=== PATIENT | female | born 1930 ===

== ENCOUNTER 2017-06-15 15:28 | Inpatient (IN) | payer MEDICARE, MEDICAID ==
[2017-06-15 16:15] LABS: BASO # 0.03 K/mm3 (0.0-2.0); BASO % 0.3 % (0.0-3.0); EOS # 0.1 (0.0-0.7); EOS % 1.3 % (1.5-5.0); GRAN # 6.16 (1.4-6.5); GRAN % 59.2 % (50.0-68.0); HEMATOCRIT 42.2 % (36.0-48.0); LYMPH # 3.5 (1.2-3.4); LYMPH % 33.6 % (22.0-35.0); MEAN CELL VOLUME 92.1 fl (80.0-105.0); MEAN CORPUSCULAR HEMOGLOBIN 30.3 pg (25.0-35.0); MEAN CORPUSCULAR HGB CONC 32.9 g/dl (31.0-37.0); MEAN PLATELET VOLUME 9.7 fl (7.0-11.0); MONO # 0.6 (0.1-0.6); MONO % 5.6 % (1.0-6.0); RED CELL DISTRIBUTION WIDTH 13.5 % (11.5-14.5); WHITE BLOOD COUNT 10.4 10^3/ul (4.5-11.0)
--- NOTE | 2017-06-15 16:16 | ED PDOC ---
Arrival/HPI - General Chief Complaint: High Blood Pressure Time Seen by Provider: 06/15/17 15:41 - History of Present Illness Narrative History of Present Illness (Text): 06/15/17 16:13 Patient is an 87 y/o F with hx of vertigo, presenting with complaint of room spinning. Patient reports that she had a checkup with her PMD Dr. Nielsen today. She reports that on the way home she became acutely dizzy. She had one episode of vomiting and is now complaining of epigastric pain and some diarrhea. Reports that she cannot ambulate or open eyes due to severe vertigo. Denies chest pain or shortness of breath. Reports that last week she did not take her medication for 3 days because she forgot but now reports compliance. Past Medical History - Infectious Disease Hx of Infectious Diseases: None - Tetanus Immunization Tetanus Immunization: Up to Date - Cardiac Hx Hypertension: Yes - Pulmonary Hx Asthma: Yes - HEENT Hx Cataracts: Yes - Musculoskeletal/Rheumatological Hx Falls: No - Psychiatric Hx Depression: No Hx Emotional Abuse: No Hx Physical Abuse: No Hx Substance Use: No - Past Surgical History Past Surgical History: No Previous - Surgical History Other/Comment: bilateral lens implanted to both eyes - Anesthesia Hx Anesthesia: No Hx Anesthesia Reactions: No Hx Malignant Hyperthermia: No - Suicidal Assessment Feels Threatened In Home Enviroment: No Family/Social History Family/Social History: No Known Family HX Smoking Status: Never Smoked Hx Alcohol Use: No Hx Substance Use: No Hx Substance Use Treatment: No Allergies/Home Meds Allergies/Adverse Reactions: Allergies No Known Allergies Allergy (Verified 08/21/15 22:20) Home Medications: Home Meds Medication Instructions Recorded Confirmed Unobtainable 06/15/17 06/15/17 Review of Systems - Review of Systems Constitutional: absent: Fatigue, Weight Change, Fevers Eyes: absent: Vision Changes, Photophobia ENT: absent: Hearing Changes, Tinnitus, TMJ Pain, Voice Changes, Sore Throat, Rhinorrhea Respiratory: absent: SOB, Cough, Sputum, Wheezing Cardiovascular: absent: Chest Pain Gastrointestinal: Abdominal Pain, Diarrhea, Nausea, Vomiting. absent: Constipation Genitourinary Female: absent: Dysuria, Frequency, Hematuria Musculoskeletal: absent: Arthralgias Skin: absent: Rash Neurological: Dizziness. absent: Headache, Focal Weakness, Speech Changes, Facial Droop Physical Exam Vital Signs Reviewed: Yes Vital Signs Temp Pulse Resp BP Pulse Ox 06/15/17 16:28 71 20 152/75 H 97 06/15/17 16:20 71 18 152/76 H 95 06/15/17 15:39 97.8 F 71 18 186/78 H 96 06/15/17 15:33 97.8 F 75 18 186/78 H 97 Temperature: Afebrile Blood Pressure: Normal Pulse: Regular Respiratory Rate: Normal Appearance: Positive for: Well-Appearing, Non-Toxic, Comfortable Pain Distress: None Mental Status: Positive for: Alert and Oriented X 3 - Systems Exam Head: Present: Atraumatic, Normocephalic Pupils: Present: PERRL, Other (horizontal nystagmus) Extroacular Muscles: Present: EOMI Conjunctiva: Present: Normal Ears: Present: NORMAL TM Mouth: Present: Moist Mucous Membranes Neck: Present: Normal Range of Motion. No: Meningeal Signs, MIDLINE TENDERNESS Respiratory/Chest: Present: Clear to Auscultation, Good Air Exchange. No: Respiratory Distress, Accessory Muscle Use Cardiovascular: Present: Regular Rate and Rhythm, Normal S1, S2. No: Murmurs Abdomen: No: Tenderness, Distention, Rebound, Guarding Upper Extremity: Present: Normal Inspection Lower Extremity: Present: Normal Inspection Neurological: Present: GCS=15, CN II-XII Intact, Speech Normal. No: Gait Normal (unable to assess due to symptoms) Psychiatric: Present: Alert, Oriented x 3 Medical Decision Making ED Course and Treatment: 06/15/17 16:16 EKG shows NSR at 71bpm with normal intervals and no st changes 06/15/17 17:00 Chest X-ray: Creator : Gustabo Romeo MD COMPARISON: 08/12/2014 FINDINGS: LUNGS: No active pulmonary disease. PLEURA: No significant pleural effusion identified, no pneumothorax apparent. CARDIOVASCULAR: No radiographic findings to suggest acute or significant cardiovascular disease. OSSEOUS STRUCTURES: No significant abnormalities. VISUALIZED UPPER ABDOMEN: Normal. OTHER FINDINGS: None. IMPRESSION: No active disease. No significant interval change compared to the prior examination(s). Please note: No preliminary report/ innterpretation of this examination provided by emergency department personnel. 06/15/17 17:47 CT shows No acute intracranial hemorrhage. Mild- moderate chronic white matter ischemic changes. Mild -moderate generalized volume loss. Probable dilated perivascular space left inferolateral basal ganglia though tiny chronic lacunar type infarct not completely excluded Mucoperiosteal inflammatory changes within the aforementioned paranasal sinuses. 06/15/17 18:02 Labs grossly normal. After meclizine and reglan patient still unable to ambulate due to persistent dizziness. Given aspirin. Spoke to Dr. Zuñiga, admitting for Dr. Nielsen and will be admitted to telemetry for dizziness with neurology and cardiology on consult. - Lab Interpretations Lab Results: 06/15/17 15:50 06/15/17 15:50 Lab Results 06/15/17 15:50: Sodium 144, Potassium 4.6, Chloride 104, Carbon Dioxide 28, Anion Gap 17, BUN 16, Creatinine 0.7, Est GFR ( Amer) > 60, Est GFR (Non- Af Amer) > 60, Random Glucose 120 H, Calcium 10.1, Phosphorus 2.9, Magnesium 2.2 , Total Bilirubin 0.5, AST 28, ALT 26, Alkaline Phosphatase 178 H, Total Creatine Kinase 42, Troponin I < 0.01, Total Protein 7.9, Albumin 4.4, Globulin 3.5, Albumin/Globulin Ratio 1.3, Lipase 55 06/15/17 15:50: PT 10.4, INR 0.96, APTT 26.5 06/15/17 15:50: WBC 10.4 D, RBC 4.58, Hgb 13.9, Hct 42.2, MCV 92.1, MCH 30.3, MCHC 32.9, RDW 13.5, Plt Count 281, MPV 9.7, Gran % 59.2, Lymph % (Auto) 33.6, [place] % (Auto) 5.6, Eos % (Auto) 1.3 L, Baso % (Auto) 0.3, Gran # 6.16, Lymph # 3.5 H, [place] # 0.6, Eos # 0.1, Baso # 0.03 06/15/17 15:39: POC Glucose (mg/dL) 116 H I have reviewed the lab results: Yes - RAD Interpretation Radiology Orders: 06/15/17 16:00 HEAD W/O CONTRAST [CT] Stat 06/15/17 16:01 CHEST PORTABLE [RAD] Stat - Medication Orders Current Medication Orders: Discontinued Medications Aspirin (Aspirin Chewable) 324 mg PO STAT STA Stop: 06/15/17 18:03 Meclizine HCl (Antivert) 50 mg PO STAT STA Stop: 06/15/17 16:01 Last Admin: 06/15/17 16:06 Dose: 50 mg Metoclopramide HCl (Reglan) 10 mg IVP STAT STA Stop: 06/15/17 16:01 Last Admin: 06/15/17 16:07 Dose: 10 mg IVP Administration Document 06/15/17 16:07 WI (Rec: 06/15/17 16:07 WI [id number]) Charges for Administration # of IVP Administrations 1 NIHSS Scale (Pioneer) Time Performed: 18:41 - How Severe is the Stoke Baseline Level of Consciousness: 0=Alert LOC to Questions: 0=Both comments correct LOC to commands: 0=Obeys both correctly Best Gaze: 0=Normal Visual: 0=No visual loss Facial: 0=Normal Motor Arm - Left: 0=No drift Motor Arm - Right: 0=No drift Motor Leg - Left: 0=No drift Motor Leg - Right: 0=No drift Limb Ataxia: 0=Absent Sensory: 0=Normal Best Language: 0=No aphasia Dysarthia: 0=Normal articulation Extinction & Inattention (Neglect): 0=Normal, no object Score: 0 Risk Level: No Stroke Risk rTPA Inclusion/Exclusion - Refusal of Treatment Patient Refused Treatment: No - Inclusion Criteria for Altepase Patient is 18 years or Older: Yes The Clinical Diagnosis of Ischemic Stroke That is Causing a Potentially Disabling Neurological Deficit: No Time of Onset is Well Established to be Less Than 270 Minute Before Treatment Would Begin: Yes Risk/Benefit Discussed With Patient/Family Member Present: No - Scribe Statement The provider has reviewed the documentation as recorded by the Scribe Disposition/Present on Arrival - Present on Arrival Any Indicators Present on Arrival: No History of DVT/PE: No History of Uncontrolled Diabetes: No Urinary Catheter: No History of Decub. Ulcer: No History Surgical Site Infection Following: None - Disposition Have Diagnosis and Disposition been Completed?: Yes Diagnosis: Dizziness Disposition: HOSPITALIZED Disposition Time: 18:02 Patient Plan: Admission Patient Problems: Current Active Problems Problem Status Onset Dizziness Acute Condition: FAIR
[2017-06-15 16:21] LABS: INR 0.96 (0.93-1.08); PARTIAL THROMBOPLASTIN TIME 26.5 Seconds (23.7-30.8)
[2017-06-15 16:22] LABS: ALB/GLOB RATIO 1.3 (1.1-1.8); ALKALINE PHOSPHATASE 178 U/L (38-126); ALT/SGPT 26 U/L (7-56); AST/SGOT 28 U/L (14-36); BILIRUBIN,TOTAL 0.5 mg/dL (0.2-1.3); BLOOD UREA NITROGEN 16 mg/dL (7-21); CALCIUM 10.1 mg/dL (8.4-10.5); CARBON DIOXIDE 28 mmol/L (21-33); CHLORIDE 104 mmol/L (98-107); GFR AFRICAN-AMERICAN > 60; GLUCOSE,RANDOM 120 mg/dL (70-110); LIPASE 55 U/L (23-300); MAGNESIUM 2.2 mg/dL (1.7-2.2); PHOSPHOROUS 2.9 mg/dL (2.5-4.5); POTASSIUM 4.6 mmol/L (3.6-5.0); SODIUM 144 mmol/L (132-148); TOTAL PROTEIN 7.9 g/dL (5.8-8.3)
[2017-06-15 16:34] LABS: TROPONIN I < 0.01 ng/mL
--- NOTE | 2017-06-15 16:50 | RAD ---
HISTORY: Dizziness. Technique: Single view portable semi erect @ 16:36. COMPARISON: 08/12/2014 FINDINGS: LUNGS: No active pulmonary disease. PLEURA: No significant pleural effusion identified, no pneumothorax apparent. CARDIOVASCULAR: No radiographic findings to suggest acute or significant cardiovascular disease. OSSEOUS STRUCTURES: No significant abnormalities. VISUALIZED UPPER ABDOMEN: Normal. OTHER FINDINGS: None. IMPRESSION: No active disease. No significant interval change compared to the prior examination(s). Please note: No preliminary report/ innterpretation of this examination provided by emergency department personnel.
--- NOTE | 2017-06-15 17:47 | CT ---
PROCEDURE: CT CT scan of the brain dated 06/15/2017 HISTORY: dizziness COMPARISON: None available. TECHNIQUE: Axial computed tomography images were obtained through the head/brain without intravenous contrast. Radiation dose: Total exam DLP = 757.05 mGy-cm. This CT exam was performed using one or more of the following dose reduction techniques: Automated exposure control, adjustment of the mA and/or kV according to patient size, and/or use of iterative reconstruction technique. FINDINGS: HEMORRHAGE: No acute parenchymal, subarachnoid or extra-axial hemorrhage. BRAIN: Mild moderate chronic periventricular white matter ischemic changes. . Small rounded low-attenuation focus inferior and lateral margin left basal ganglia likely representing a dilated perivascular space however the possibility of a tiny chronic lacunar type infarct not excluded. Mild moderate generalized volume loss VENTRICLES: Unremarkable. No hydrocephalus. CALVARIUM: There are no acute calvarial fractures. PARANASAL SINUSES: The paranasal sinuses well-developed. Minor mucosal thickening seen within the ethmoid air complex and left chamber sphenoid sinus. There may also be some minimal mucosal thickening both maxillary antra. Mild sclerosis and thickening posterolateral beth both maxillary antra MASTOID AIR CELLS: Unremarkable as visualized. No inflammatory changes. OTHER FINDINGS: Changes of bilateral cataract surgery IMPRESSION: No acute intracranial hemorrhage. Mild- moderate chronic white matter ischemic changes. Mild -moderate generalized volume loss. Probable dilated perivascular space left inferolateral basal ganglia though tiny chronic lacunar type infarct not completely excluded Mucoperiosteal inflammatory changes within the aforementioned paranasal sinuses.
[2017-06-15 21:36] VITALS: BMI 27.4
[2017-06-15] MEDS ORDERED: Pneumococcal 23-Valent Vaccine IM ONE (22:12)
[2017-06-15] MEDS: Sodium Chloride 0.45% 1,000 ML IV SCH (22:18)
[2017-06-16] MEDS: Sodium Chloride 0.45% 1,000 ML IV SCH (11:39)
[2017-06-16 12:45] LABS: ALB/GLOB RATIO 1.3 (1.1-1.8); ALKALINE PHOSPHATASE 152 U/L (38-126); ALT/SGPT 36 U/L (7-56); AST/SGOT 32 U/L (14-36); BILIRUBIN,TOTAL 0.6 mg/dL (0.2-1.3); BLOOD UREA NITROGEN 11 mg/dL (7-21); CALCIUM 9.4 mg/dL (8.4-10.5); CARBON DIOXIDE 27 mmol/L (21-33); CHLORIDE 107 mmol/L (98-107); GFR AFRICAN-AMERICAN > 60; GLUCOSE,RANDOM 106 mg/dL (70-110); POTASSIUM 4.1 mmol/L (3.6-5.0); SODIUM 143 mmol/L (132-148); TOTAL PROTEIN 7.3 g/dL (5.8-8.3)
[2017-06-16 12:56] LABS: TROPONIN I < 0.01 ng/mL
--- NOTE | 2017-06-16 13:51 | CARD ---
APPROVED REPORT EXAM: Two-dimensional and M-mode echocardiogram with Doppler and color Doppler. INDICATION Hypertension/HCVD 2D DIMENSIONS Left Atrium (2D)3.4 (1.6-4.0cm)IVSd1.2 (0.7-1.1cm) LVDd4.5 (3.9-5.9cm)PWd1.0 (0.7-1.1cm) LVDs2.8 (2.5-4.0cm)FS (%) 38.3 % LVEF (%)68.7 (>50%) M-Mode DIMENSIONS Aortic Root2.40 (2.2-3.7cm)Aortic Cusp Exc.1.30 (1.5-2.0cm) Aortic Valve AoV Peak Kxelseoa989.0cm/Manny Peak GR.9mmHg Mitral Valve MV E Qtrualaj83.1cm/sMV A Xptumrtk50.9cm/sE/A ratio0.6 TDI E/Lateral E'0.0E/Medial E'0.0 Tricuspid Valve TR Peak Wlkfslmh580ch/sRAP [id number] Peak Gr.19mmHg [id number] LEFT VENTRICLE The left ventricle is normal size. There is borderline concentric left ventricular hypertrophy. The left ventricular function is normal.EF-65% There is normal LV segmental wall motion. Transmitral Doppler flow pattern is Grade III-reversible restrictive diastolic dysfunction. No left ventricle thrombus noted on this study. There is no ventricular septal defect visualized. There is no left ventricular aneurysm. There is no mass noted in the left ventricle. RIGHT VENTRICLE The right ventricle is normal size. There is normal right ventricular wall thickness. The right ventricular systolic function is normal. ATRIA The left atrium size is normal. The right atrium size is normal. The interatrial septum is intact with no evidence for an atrial septal defect. AORTIC VALVE The aortic valve is thickened but opens well. There is mild aortic regurgitation. There is no aortic valvular stenosis. There is no aortic valvular vegetation. MITRAL VALVE The mitral valve is thickened but opens well. Mitral regurgitation is mild. There is no mitral valve stenosis. There is no evidence of mitral valve prolapse. TRICUSPID VALVE The tricuspid valve leaflets are thickened , but open well. There is mild tricuspid regurgitation.RVSP-29 mmof hg. There is no tricuspid valve stenosis. There is no tricuspid valve prolapse or vegetation. PULMONIC VALVE The pulmonary valve is normal in structure. There is trace pulmonic valvular regurgitation. There is no pulmonic valvular stenosis. GREAT VESSELS The aortic root is normal in size. The ascending aorta is normal in size. The pulmonary artery is normal. The IVC is normal in size and collapses >50% with inspiration. PERICARDIAL EFFUSION There is no pleural effusion. There is no pericardial effusion. <Conclusion> Normal Chamber Size. EF-65%. There is mild aortic regurgitation. Mitral regurgitation is mild. There is mild tricuspid regurgitation.RVSP-29 mmof hg. The IVC is normal in size and collapses >50% with inspiration. There is no pericardial effusion.
--- NOTE | 2017-06-16 14:28 | CARD ---
APPROVED REPORT EKG Measurement Heart [id number] CT 150P12 [id number] <Conclusion> Normal sinus rhythm Normal ECG
--- NOTE | 2017-06-16 18:59 | CON ---
DATE: 06/16/2017 REASON FOR CONSULTATION: Followup uncontrolled hypertension, vertigo, dizziness. BRIEF CLINICAL HISTORY: An 87-year-old female with past medical history of vertigo, history of hypertension, on amlodipine; complaining of uncontrolled high blood pressure and dizziness. The patient went yesterday to see Dr. Nielsen, who is a PMD of the patient and found to be in uncontrolled hypertension. The patient was complaining of dizziness. The patient was advised to come to the [facility] where the patient's blood pressure was found to be 186/78 and the patient was admitted here. The patient denies any chest pain, denies any shortness of breath, denies any palpitation. PAST MEDICAL HISTORY: Past history significant for hypertension. SOCIAL HISTORY: Denies smoking. Denies any history of alcohol abuse. CURRENT MEDICATIONS: The patient is on amlodipine 5 mg daily. REVIEW OF SYSTEMS: As per HPI. PHYSICAL EXAMINATION VITAL SIGNS: Temperature afebrile, heart rate 71, blood pressure 165/58. HEENT: PERRLA. Extraocular muscles intact. NECK: Supple. No carotid bruit or thyromegaly. CHEST: Clear to auscultation. HEART: S1 and S2 regular. ABDOMEN: Soft. EXTREMITIES: Clubbing and cyanosis negative. LABORATORY DATA: Blood workup as follows: WBC 10.4, hemoglobin 13.9, hematocrit 42.2, platelet count 281. Chemistry shows sodium 144, potassium 4.6, chloride 104, carbon dioxide 28, anion gap of 17, BUN 16, and creatinine 0.7. Troponin is 0.01. IMPRESSION: Uncontrolled hypertension, dizziness, rule out any structural heart disease, so far no evidence of myocardial infarction. RECOMMENDATIONS: We will get lipid profile, TSH, hemoglobin A1c. Follow up CPK, troponin. We will cut down the fluid, check for orthostatic hypotension. We will add 5 mg more of Norvasc and give the p.r.n. hydralazine. We will get 5 mg more of amlodipine now and discontinue IV fluid. Thank you Dr. Zuñiga for providing me the opportunity in taking care of Марина Ruvalcaba. Mariah Pendleton MD [facility] # [id number]
--- NOTE | 2017-06-17 02:19 | HP ---
HISTORY OF PRESENT ILLNESS: The patient is an 87-year-old female, not a very good historian.; however, the patient states that she was feeling very weak, dizzy, and room was spinning. She went to see yesterday for her regular checkup. She was okay when she came home. She felt extremely dizzy, made her nauseous, she threw up, and did not have any diarrhea. No fever or chills. Did vomit once and started to have epigastric pain. She did not have any hemoptysis or hematemesis. No history of chest pain, no shortness of breath. The patient states that she ran over her medications and did not take it for the last two to three days. When I examined the patient, she was feeling well and did not complain of any more vertigo. PAST MEDICAL HISTORY: Significant for hypertension, history of aortic regurgitation and history of mitral regurgitation on echocardiogram. The patient was admitted with gastroenteritis back in 2014. ALLERGIES: SHE IS NOT ALLERGIC TO ANY MEDICATIONS. MEDICATIONS AT HOME: She is on amlodipine 5 mg daily. SOCIAL HISTORY: She lives with her family. Denies smoking, drinking, or alcohol use. REVIEW OF SYSTEMS: Significant for feeling dizzy at times, but feels okay now. PHYSICAL EXAMINATION: GENERAL: She is awake, alert, and oriented. Communicative. VITAL SIGNS: She is afebrile. Pulse 69, respiration 20, blood pressure 153/93. LUNGS: Bilateral fair airflow. No rhonchi or crackle. HEART: S1 and S2 audible. ABDOMEN: Soft and nontender. No rebound, no guarding. NEUROLOGIC: The patient is awake and alert. Able to communicate. EXTREMITIES: Moves all extremities. LABORATORY EXAMINATION: WBC is 10.4, hemoglobin 13.9, hematocrit 42.2. PT , INR 0.96. Chemistry: Sodium 143, potassium 4.1, chloride 107, CO2 of 27, BUN 11, creatinine 0.7, blood sugar of 106. LFTs are within normal limit. Her alkaline phosphatase is 152, LDH is 330. She had CT scan of the head done that is unremarkable and her x-ray of the chest shows no active disease, no significant interval change. EKG shows normal sinus rhythm and normal EKG. ASSESSMENT: 1. Extreme dizziness, probably secondary to vertigo. 2. Hypertension, uncontrolled. PLAN: Start the patient on meclizine as needed. Order for carotid Doppler, encourage ambulation. If the patient remains stable, discharge plan for aureliano. Alexandre Dutta MD
[2017-06-17 06:56] LABS: BASO # 0.04 K/mm3 (0.0-2.0); BASO % 0.4 % (0.0-3.0); EOS # 0.3 (0.0-0.7); EOS % 2.9 % (1.5-5.0); GRAN # 4.82 (1.4-6.5); GRAN % 53.6 % (50.0-68.0); HEMATOCRIT 41.1 % (36.0-48.0); LYMPH # 3.2 (1.2-3.4); LYMPH % 35.9 % (22.0-35.0); MEAN CELL VOLUME 91.7 fl (80.0-105.0); MEAN CORPUSCULAR HEMOGLOBIN 29.9 pg (25.0-35.0); MEAN CORPUSCULAR HGB CONC 32.6 g/dl (31.0-37.0); MEAN PLATELET VOLUME 9.5 fl (7.0-11.0); MONO # 0.7 (0.1-0.6); MONO % 7.2 % (1.0-6.0); RED CELL DISTRIBUTION WIDTH 13.7 % (11.5-14.5)
[2017-06-17 07:15] LABS: MAGNESIUM 2.3 mg/dL (1.7-2.2); PHOSPHOROUS 3.2 mg/dL (2.5-4.5)
[2017-06-17 08:49] LABS: PH,URINE 5.5 (4.7-8.0); URINE BILIRUBIN NEGATIVE (NEGATIVE); URINE BLOOD MODERATE (NEGATIVE); URINE GLUCOSE (UA) NEGATIVE (NEGATIVE); URINE KETONE NEGATIVE (NEGATIVE); URINE LEUKOCYTE ESTERASE NEGATIVE Leu/uL (NEGATIVE); URINE PROTEIN NEGATIVE mg/dL (<30 mg/dL); URINE UROBILINOGEN 0.2 E.U./dL (<1 E.U./dL)
[2017-06-17 08:52] LABS: URINE APPEARANCE SLIGHT-CLOUDY (CLEAR); URINE COLOR YELLOW (YELLOW)
[2017-06-17 08:53] LABS: URINE AMORPHOUS SEDIMENT SMALL; URINE RBC 15 - 20 /hpf (0-2)
--- NOTE | 2017-06-17 17:45 | PN ---
DATE: 06/17/2017 REASON FOR CONSULTATION: Followup of uncontrolled hypertension, vertigo and dizziness. SUBJECTIVE: The patient denies any chest pain, shortness of breath or any palpitation. Family is at the bedside. PHYSICAL EXAMINATION: VITAL SIGNS: Temperature afebrile, heart rate 75 and blood pressure 170/77. HEENT: PERRLA, intact. NECK: Supple. No carotid bruit or thyromegaly. CHEST: Clear to auscultation. HEART: S1 and S2 regular. ABDOMEN: Soft. EXTREMITIES: Clubbing and cyanosis negative. LABORATORY DATA: Blood workup as follows: WBC 9, hemoglobin 13.1, hematocrit 41.1 and platelet count 282. Chemistry shows sodium 143, potassium 4.1, chloride 107, carbon dioxide 27, anion gap of 13, BUN 11, creatinine 0.7 and magnesium 2.3. The patient's triglyceride is 147, LDL 85, total cholesterol 140, HDL 31, TSH 2.89 and hemoglobin A1c pending. IMPRESSION: Uncontrolled hypertension and dizziness. The patient's blood pressure at 's office was significantly elevated, in ER within the range of 186/78 and at home was 200. The patient underwent echocardiography also yesterday that showed mild mitral regurgitation, mild aortic regurgitation, mild tricuspid right ventricular systolic pressure of 29 and ejection fraction 65%, no evidence of acute myocardial infarction. RECOMMENDATION: Continue amlodipine 10 mg. Continue hydralazine p.r.n. Continue hydrochlorothiazide 12.5. Add 10 mg of lisinopril for better control of the blood pressure. We will keep n.p.o. after midnight for a stress test in the morning. Discussed with the son the patient's condition. So far, no evidence of acute [place]. We will follow with you. Thank you Dr. Dutta/Dr. Zuñiga for providing us the opportunity in taking care of the patient, Марина Ruvalcaba. Mariah Pendleton MD
[2017-06-18 03:51] VITALS: RESP 18; O2SAT 96
[2017-06-18 08:15] VITALS: TEMP 97.9
--- NOTE | 2017-06-18 08:53 | CON ---
DATE: 06/16/2017 CHIEF COMPLAINT: Dizziness. HISTORY OF PRESENT ILLNESS: The patient is a 87-year-old woman with history of vertigo and hypertension, who came in for spinning sensation of room and found to be nauseous and had one episode of vomiting, abdominal pain, and some diarrhea. Her blood pressure systolically and diastolically elevated, which has been adjusted with blood pressure medications and is no longer having spinning sensation of room. She was given meclizine x1 dose and is doing well. CT head show no acute intracranial abnormalities. PAST MEDICAL HISTORY: Hypertension, asthma, and vertigo. SOCIAL HISTORY: No illicit drug use. No EtOH abuse. REVIEW OF SYSTEMS: A 14-point review of systems negative as per HPI. ALLERGIES: NO KNOWN DRUG ALLERGIES. MEDICATIONS: Reviewed by medication reconciliation sheath. PHYSICAL EXAMINATION GENERAL: The patient sitting up in bed, in no acute distress. VITAL SIGNS: Temperature 98.3, pulse 69, blood pressure 153/93, respiratory 20. HEENT: Head normocephalic, atraumatic. Eyes PERRLA. Extraocular muscles are intact. NECK: Supple. No JVD. No adenopathy noted. LUNGS: Clear to auscultation. No adventitial sounds. HEART: S1 and S2, normal rate and rhythm. No murmurs, rubs, or gallops. ABDOMEN: Soft, nontender, and nondistended. Bowel sounds present. EXTREMITIES: No clubbing. No cyanosis. bilaterally. NEUROLOGIC: The patient is alert and oriented to person and place spontaneously. Cranial nerves II through XII intact. Motor exam: Moving all 4 extremities. intact. DTRs are 2+ gait is deferred now.. LABORATORY DATA: Sodium 142, potassium 4.1, chloride 107, carbon dioxide 27, BUN of 11, creatinine 0.7, . ASSESSMENT AND PLAN: This is an 87-year-old woman with history of hypertension, cataracts, asthma, and vertigo. Had dizziness in terms of spinning sensation of room and one episode of nausea, vomiting, diarrhea, and abdominal pain. She also hypertensive urgency as well. At this time, her dizziness in most likely secondary to hypertensive urgency with positional vertigo component. RECOMMENDATIONS: At this time, I recommend; 1. Salt restriction in diet. 2. Keep blood pressure between 130 to 140 and get blood pressure medication adjusted. 3. Aspirin 81 mg for stroke prevention. 4. Meclizine 25 mg p.o. t.i.d. for acute onset of vertigo and likely stable. Triston Bach MD
--- NOTE | 2017-06-18 10:19 | PN ---
DATE: 06/17/2017 HISTORY OF PRESENT ILLNESS: The patient is an 87-year-old, seen and examined, seems to be doing well, eating and tolerating. Does not complain of any more dizziness. PHYSICAL EXAMINATION: VITAL SIGNS: She is afebrile, pulse 75, respirations 18, blood pressure 170/77. LUNGS: Bilateral fair airflow. No rhonchi or crackle. HEART: S1 and S2 audible. ABDOMEN: Soft and nontender. No rebound. No guarding. EXTREMITIES: Bilateral leg, no edema NEUROLOGIC: She is awake, alert, oriented, communicative, answer appropriately. LABORATORY DATA: WBC 9.0, hemoglobin 13, hematocrit 41, platelets 282. Chemistry; sodium 143, potassium 4.1, chloride 107, CO2 of 27, BUN 11, creatinine 0.7, blood sugar of 106, magnesium 2.3, alk phos is 152, LDH is 330. Urinalysis shows moderate blood. ASSESSMENT: 1. Dizziness probably multifactorial could be secondary to uncontrolled hypertension and vertigo. 2. Hyperlipidemia. 3. Borderline hyperglycemia. PLAN: We will get carotid Doppler, if it is negative, the patient seems to be doing well at this point. She can be discharge later on today. She will resume her medication, amlodipine 10 mg daily and she will follow up with her PMD for further management. Alexandre Dutta MD
[2017-06-18] MEDS ORDERED: Aminophylline 25 mg/ml Inj ONE (10:36)
[2017-06-18 15:00] VITALS: PULSE 77
[2017-06-18 17:00] VITALS: BP 130/77
--- NOTE | 2017-06-18 18:14 | US ---
PROCEDURE: Bilateral carotid artery duplex ultrasound HISTORY: Carotid stenosis syncope PHYSICIAN(S): Jamar Corral MD. TECHNIQUE: Duplex sonography and color-flow Doppler were used to evaluate the carotid bifurcations and limited segments of the vertebral arteries bilaterally. FINDINGS: There is mild smooth heterogeneous plaque noted at the carotid bifurcations bilaterally. The peak systolic velocity in the proximal right internal carotid artery is 97 cm/sec. This corresponds to a 20 to 39% proximal right ICA stenosis. Normal systolic velocities are noted in the proximal right external carotid artery. There is antegrade flow in the right vertebral artery. The peak systolic velocity in the proximal left internal carotid artery is 91 cm/sec. This corresponds to a 20 to 39% proximal left ICA stenosis. Normal systolic velocities are noted in the proximal left external carotid artery. There is antegrade flow in the left vertebral artery. IMPRESSION: 1. Bilateral 20-39% proximal ICA stenoses. 2. Antegrade flow in both vertebral arteries.
--- NOTE | 2017-06-18 21:45 | CARD ---
APPROVED REPORT Protocol: LEXISCAN Test Type: Lexiscan Sestamibi Stress Test Attending Physician: Dr. Mariah Cedillo Referring Physician: Dr. Grisel Nielsen Test Indications: Dizziness Height:5 ft 2 in Weight:156lbs Medications: Norvasc,Apresoline,Microzide, Zestril,Meclizine, Zofran Medical History: 87 y/o female. Hx of asthma,hypertension, hyperlipidemia. Target HR: 135 bpm Resting ECG: RSR. Resting Heart Rate: 74 bpm Resting Blood Pressure: 110/70mmHg Submaximum (85%): 115 bpm PROCEDURE Pharmacologic stress testing was performed using 0.4mg per 5ml of regadenoson given intravenously over 7-10 seconds. Reversal agent aminophyline 100 mg, given intravenously for Other. POST EXERCISE Reason for Termination: Protocol completed Target HR: No Max HR: 75 bpm 67% of Maximum Predicted HR: 135 bpm Exercise duration: 00:31 min:sec, 0 Stage Exercise capacity: 1.0METs Max Blood Pressure: 120/70mmHg Blood Pressure response to exercise: normal resting BP - appropriate response Heart Rate response to exercise: appropriate Chest Pain: No, none Angina index: 0 Arrhythmia: No, none ST Change: No, none Deviation: 0 mm INTERPRETATION Stress EKG Conclusion: IV LEXISCAN NUCLEAR STRESS TEST NEGATIVE FOR CHEST PAIN AND NEGATIVE FOR ST-T CHANGES. NUCLEAR SCAN REPORT PENDING. Signed by Mariah Cedillo Electronically Approved: 06/18/2017 13:03:53 EXAM: Myocardial Perfusion STRESS/REST Stress Test Type: Pharmacologic Imaging Protocol Rest Spect myocardial perfusion imaging was performed in supine position 60 minutes following the injection of 30.1 mCi of Tc-99 Myoview. At peak stress, the patient was injected intravenously with 10.5mCi of Tc-99 tetrofosmin after an infusion time of 0 minutes and 10 seconds. Gated Stress Spect was performed 65 minutes after intravenous Tc-99 Myoview injection. The images were gated to evaluate regional wall motion and calculate ventricular ejection fraction.Images were reconstructed using backfilter projection method in short horizontal and verticle long axis. Spect slices were generated. LV Perfusion The quality of the study is good. The left ventricle is normal in size. The right ventricle is unremarkable. The lung uptake is normal. The distribution of tracer reveals a small area of mildly decreased perfusion in the apical wall on the stress study. The remainder of the LV myocardium is unremarkable. The rest myocardial perfusion study shows improvement of apical defect. Wall Motion Wall motion study shows good contractility of the left ventricle. LVEF = 72%. Conclusion 1. Probably abnormal SPECT myocardial perfusion study. 2. Reversible, small, apical defect is suspicious of ischemia. 3. Normal gated wall motion of the left ventricle.
--- NOTE | 2017-06-18 23:00 | CP.PCM.DIS ---
Provider - Provider Date of Admission: 06/15/17 18:03 Attending physician: Corry Zuñiga MD Primary care physician: Grisel Nielsen DO Time Spent in preparation of Discharge (in minutes): 50 Hospital Course - Lab Results Lab Results: Most Recent Lab Values WBC 9.0 10^3/ul (4.5-11.0) 06/17/17 06:20 RBC 4.48 10^6/uL (3.5-6.1) 06/17/17 06:20 Hgb 13.4 g/dL (12.0-16.0) 06/17/17 06:20 Hct 41.1 % (36.0-48.0) 06/17/17 06:20 MCV 91.7 fl (80.0-105.0) 06/17/17 06:20 MCH 29.9 pg (25.0-35.0) 06/17/17 06:20 MCHC 32.6 g/dl (31.0-37.0) 06/17/17 06:20 RDW 13.7 % (11.5-14.5) 06/17/17 06:20 Plt Count 282 10^3/uL (120.0-450.0) 06/17/17 06:20 MPV 9.5 fl (7.0-11.0) 06/17/17 06:20 Gran % 53.6 % (50.0-68.0) 06/17/17 06:20 Lymph % (Auto) 35.9 % (22.0-35.0) H 06/17/17 06:20 [place] % (Auto) 7.2 % (1.0-6.0) H 06/17/17 06:20 Eos % (Auto) 2.9 % (1.5-5.0) 06/17/17 06:20 Baso % (Auto) 0.4 % (0.0-3.0) 06/17/17 06:20 Gran # 4.82 (1.4-6.5) 06/17/17 06:20 Lymph # 3.2 (1.2-3.4) 06/17/17 06:20 [place] # 0.7 (0.1-0.6) H 06/17/17 06:20 Eos # 0.3 (0.0-0.7) 06/17/17 06:20 Baso # 0.04 K/mm3 (0.0-2.0) 06/17/17 06:20 PT 10.4 Seconds (9.9-11.8) 06/15/17 15:50 INR 0.96 (0.93-1.08) 06/15/17 15:50 APTT 26.5 Seconds (23.7-30.8) 06/15/17 15:50 Sodium 143 mmol/L (132-148) 06/16/17 12:20 Potassium 4.1 mmol/L (3.6-5.0) 06/16/17 12:20 Chloride 107 mmol/L (98-107) 06/16/17 12:20 Carbon Dioxide 27 mmol/L (21-33) 06/16/17 12:20 Anion Gap 13 (10-20) 06/16/17 12:20 BUN 11 mg/dL (7-21) 06/16/17 12:20 Creatinine 0.7 mg/dL (0.7-1.2) 06/16/17 12:20 Est GFR ( Amer) > 60 06/16/17 12:20 Est GFR (Non-Af Amer) > 60 06/16/17 12:20 POC Glucose (mg/dL) 116 mg/dL (65-110) H 06/15/17 15:39 Random Glucose 106 mg/dL (70-110) 06/16/17 12:20 Hemoglobin A1c 6.0 % (4.2-6.5) 06/16/17 12:30 Calcium 9.4 mg/dL (8.4-10.5) 06/16/17 12:20 Phosphorus 3.2 mg/dL (2.5-4.5) 06/17/17 06:20 Magnesium 2.3 mg/dL (1.7-2.2) H 06/17/17 06:20 Total Bilirubin 0.6 mg/dL (0.2-1.3) 06/16/17 12:20 AST 32 U/L (14-36) 06/16/17 12:20 ALT 36 U/L (7-56) 06/16/17 12:20 Alkaline Phosphatase 152 U/L (38-126) H 06/16/17 12:20 Lactate Dehydrogenase 330 U/L (333-699) L 06/16/17 12:20 Total Creatine Kinase 46 U/L (35-230) 06/16/17 12:20 Troponin I < 0.01 ng/mL 06/16/17 12:20 Total Protein 7.3 g/dL (5.8-8.3) 06/16/17 12:20 Albumin 4.1 g/dL (3.0-4.8) 06/16/17 12:20 Globulin 3.2 gm/dL 06/16/17 12:20 Albumin/Globulin Ratio 1.3 (1.1-1.8) 06/16/17 12:20 Triglycerides 147 mg/dL (35-160) 06/17/17 06:20 Cholesterol 140 mg/dL (130-200) 06/17/17 06:20 LDL Cholesterol Direct 85 mg/dL (0-129) 06/17/17 06:20 HDL Cholesterol 31 mg/dL (29-60) 06/17/17 06:20 Lipase 55 U/L (23-300) 06/15/17 15:50 TSH 3rd Generation 2.48 mIU/mL (0.46-4.68) 06/16/17 12:20 Urine Color Yellow (YELLOW) 06/17/17 08:21 Urine Appearance Slight-cloudy (CLEAR) 06/17/17 08:21 Urine pH 5.5 (4.7-8.0) 06/17/17 08:21 Ur Specific [place] 1.020 (1.005-1.035) 06/17/17 08:21 Urine Protein Negative mg/dL (<30 mg/dL) 06/17/17 08:21 Urine Glucose (UA) Negative mg/dL (NEGATIVE) 06/17/17 08:21 Urine Ketones Negative mg/dL (NEGATIVE) 06/17/17 08:21 Urine Blood Moderate (NEGATIVE) H 06/17/17 08:21 Urine Nitrate Negative (NEGATIVE) 06/17/17 08:21 Urine Bilirubin Negative (NEGATIVE) 06/17/17 08:21 Urine Urobilinogen 0.2 E.U./dL (<1 E.U./dL) 06/17/17 08:21 Ur Leukocyte Esterase Negative Eda/uL (NEGATIVE) 06/17/17 08:21 Urine RBC 15 - 20 /hpf (0-2) 06/17/17 08:21 Urine WBC 2 - 5 /hpf (0-6) 06/17/17 08:21 Ur Epithelial Cells 6 - 8 /hpf (0-5) 06/17/17 08:21 Amorphous Sediment Small 06/17/17 08:21 - Hospital Course Hospital Course: 1. Uncontrolled hypertension 2. Dizziness 3. lymphocytosis Hospital course ; admitted with dizziness, BP uncontrolled. cardiology consult Dr. Pendleton requested. Cardiac stress test showed small apical defect. Condition improved. Discharge Exam - Eye Exam Eye Exam: Normal appearance Pupil Exam: NORMAL ACCOMODATION - ENT Exam ENT Exam: Mucous Membranes Dry - Neck Exam Neck exam: Normal Inspection - Respiratory Exam Respiratory Exam: Clear to PA & Lateral, NORMAL BREATHING PATTERN - Cardiovascular Exam Cardiovascular Exam: REGULAR RHYTHM, +S1, +S2 - GI/Abdominal Exam GI & Abdominal Exam: Normal Bowel Sounds, Soft, Unremarkable - Extremities Exam Extremities exam: normal inspection - Back Exam Back exam: NORMAL INSPECTION - Neurological Exam Neurological exam: Normal Gait, Oriented x3 - Skin Skin Exam: Normal Color, Warm Discharge Plan - Discharge Medications Prescriptions: amLODIPine [Norvasc] 10 mg PO DAILY #30 tab hydroCHLOROthiazide [Microzide] 12.5 mg PO DAILY #30 cap Lisinopril [Zestril] 20 mg PO DAILY #30 tab Meclizine [Antivert] 12.5 mg PO TID PRN #5 tab PRN Reason: Dizziness - Follow Up Plan Condition: FAIR Disposition: HOME/ ROUTINE Instructions: Vertigo (DC), Gastroenteritis (DC), Dizziness (GEN), Epigastric Pain (GEN)
--- NOTE | 2017-06-19 09:27 | PN ---
DATE: 06/18/2017 LOCATION: The patient is in room 562, bed 1. REASON FOR CONSULTATION: Followup with uncontrolled hypertension, vertigo, dizziness. SUBJECTIVE: The patient lying flat in bed without any chest pain, shortness of breath or palpitation. Still complains of some dizziness. PHYSICAL EXAMINATION: VITAL SIGNS: Blood pressure 118/61, respirations 18, pulse 75, temperature 97.9. HEENT: Head is normocephalic. Eyes, pupils normal. Conjunctivae normal. Nose and throat normal. NECK: JVP low, carotid equal. THORAX: AP diameter normal. LUNGS: Clear. CARDIOVASCULAR: S1 and S2. ABDOMEN: Soft and nontender. No organomegaly. Bowel sounds normal. EXTREMITIES: No clubbing, no cyanosis. LABORATORY DATA: WBC 9.0, hemoglobin 13.4, hematocrit 41.1, and platelet 282. Sodium 143, potassium 4.1, BUN 11, creatinine 0.7, phosphorus 3.2. Troponin negative. DIAGNOSES: Uncontrolled hypertension, dizziness. The patient had echo on 06/16/2017, which showed left ventricular ejection fraction of 55%, mild mitral regurgitation, mild aortic regurgitation, mild tricuspid regurgitation. PLAN: The patient's blood pressure is stable now. The patient is on meclizine 12.5 mg t.i.d., hydrochlorothiazide 12.5 mg daily, amlodipine 10 mg daily, lisinopril 20 mg p.o. daily. We will continue present therapy. We will follow with you. The patient scheduled for IV Lexiscan stress test today. Mariah Cedillo MD
== END 2017-06-18 20:57 | disposition home or self-care (01) | DRG 305 ==
LOC: ED 15:28 → ERH 18:03 → 2RNO 20:19 → 5RNO 06-17 19:58
PROVIDERS: ADMIT Internal Medicine Medical Oncology; ATTEND Internal Medicine Medical Oncology
DX: I16.0 Hypertensive urgency (principal); I08.3 Combined rheumatic disorders of mitral, aortic and tricuspid valves; H81.10 Benign paroxysmal vertigo, unspecified ear; D72.820 Lymphocytosis (symptomatic); E78.5 Hyperlipidemia, unspecified; R73.9 Hyperglycemia, unspecified

== ENCOUNTER 2017-06-21 14:02 | Observation (INO) | payer MEDICARE, MEDICAID ==
[2017-06-21 14:25] VITALS: BMI 29.0
--- NOTE | 2017-06-21 15:32 | ED PDOC ---
Arrival/HPI - General Chief Complaint: Dizziness/Lightheaded Time Seen by Provider: 06/21/17 14:44 Historian: Patient - History of Present Illness Narrative History of Present Illness (Text): 06/21/17 15:28 87 yo male, h/o HTN, Dizziness, presents to the ED c/o a headache, dizziness, and nausea since this morning around 11 am. She describes the headache as ache. Not the worst headache of your life. Dizziness is worsened with movement of headache and associated with nausea. She took her Meclizine 12.5mg without relief. She was just admitted and discharge from [facility] – [place] fro dizziness and HTN this past Sunday. No change in vision or voice. No numbness or weakness. No vomiting. No chest pain, back pain or palpitations. PMD: Dr. Nielsen. Past Medical History - Provider Review Nursing Documentation Reviewed: Yes - Infectious Disease Hx of Infectious Diseases: None - Tetanus Immunization Tetanus Immunization: Up to Date - Cardiac Hx Cardiac Disorders: Yes Hx Hypertension: Yes - Pulmonary Hx Respiratory Disorders: Yes Hx Asthma: Yes Hx Bronchitis: Yes - Neurological Hx Neurological Disorder: Yes Hx Dizziness: Yes Hx Migraine: Yes - HEENT Hx HEENT Disorder: Yes Hx Cataracts: Yes (Cataracts extraction) Other/Comment: wear glasses - Renal Hx Renal Disorder: No - Endocrine/Metabolic Hx Endocrine Disorders: No - Hematological/Oncological Hx Blood Disorders: No - Integumentary Hx Dermatological Disorder: No - Musculoskeletal/Rheumatological Hx Musculoskeletal Disorders: Yes Hx Arthritis: Yes Hx Back Pain: Yes Hx Falls: No Hx Herniated Disk: Yes - Gastrointestinal Hx Gastrointestinal Disorders: Yes Hx Gastroesophageal Reflux: Yes - Genitourinary/Gynecological Hx Genitourinary Disorders: No - Psychiatric Hx Psychophysiologic Disorder: No Hx Substance Use: No - Past Surgical History Past Surgical History: No Previous - Surgical History Other/Comment: Cataract extraction - Anesthesia Hx Anesthesia: No Hx Anesthesia Reactions: No Hx Malignant Hyperthermia: No - Suicidal Assessment Feels Threatened In Home Enviroment: No Family/Social History - Physician Review Nursing Documentation Reviewed: Yes Family/Social History: No Known Family HX Smoking Status: Never Smoked Hx Alcohol Use: No Hx Substance Use: No Hx Substance Use Treatment: No Allergies/Home Meds Allergies/Adverse Reactions: Allergies No Known Allergies Allergy (Verified 06/21/17 14:25) Home Medications: Home Meds Medication Instructions Recorded Confirmed aMILoride [aMILoride 5 mg Tab] 5 mg PO DAILY 06/15/17 06/21/17 Review of Systems - Review of Systems Constitutional: Normal. absent: Fevers Eyes: Normal. absent: Vision Changes, Photophobia, Eye Pain ENT: Normal Respiratory: Normal Cardiovascular: Normal Gastrointestinal: Nausea. absent: Abdominal Pain, Diarrhea, Vomiting Genitourinary Female: Normal Musculoskeletal: Normal Skin: Normal Neurological: Headache, Dizziness Endocrine: Normal Hemo/Lymphatic: Normal Psychiatric: Normal Physical Exam Vital Signs Reviewed: Yes Vital Signs Temp Pulse Resp BP Pulse Ox 06/21/17 15:27 69 18 139/50 L 96 06/21/17 14:25 98.0 F 77 18 141/64 96 06/21/17 14:22 98.0 F 77 18 141/64 96 Temperature: Afebrile Blood Pressure: Normal Pulse: Regular Respiratory Rate: Normal Appearance: Positive for: Well-Appearing, Non-Toxic, Comfortable Pain Distress: None Mental Status: Positive for: Alert and Oriented X 3 - Systems Exam Head: Present: Atraumatic, Normocephalic Pupils: Present: PERRL Extroacular Muscles: Present: EOMI Conjunctiva: Present: Normal Ears: Present: Normal, NORMAL TM Mouth: Present: Moist Mucous Membranes Pharnyx: Present: Normal. No: ERYTHEMA, EXUDATE Neck: Present: Normal Range of Motion. No: MIDLINE TENDERNESS, Paraspinal Tenderness Respiratory/Chest: Present: Clear to Auscultation, Good Air Exchange. No: Respiratory Distress, Accessory Muscle Use Cardiovascular: Present: Regular Rate and Rhythm, Normal S1, S2. No: Murmurs Abdomen: Present: Normal Bowel Sounds. No: Tenderness, Distention, Peritoneal Signs Back: Present: Normal Inspection Upper Extremity: Present: Normal Inspection. No: Cyanosis, Edema Lower Extremity: Present: Normal Inspection. No: Edema Neurological: Present: GCS=15, CN II-XII Intact, Speech Normal, Motor Func Grossly Intact, Normal Sensory Function, Norm Deep Tendon Reflexes, Memory Normal, Other (dizziness worse with head movement.; No nystagmus) Skin: Present: Warm, Dry, Normal Color. No: Rashes Psychiatric: Present: Alert, Oriented x 3, Normal Insight, Normal Concentration Medical Decision Making ED Course and Treatment: 06/21/17 15:33 87 yo female with dizziness r/o Benign Positional Vertigo vs CVA -- Labs -- EKG, CXR -- Reglan IV, Tylenol -- CT Head -- Reevaluate and disposition Progress Notes: 06/21/2017 17:[address] IMPRESSION: No acute intracranial hemorrhage. Mild to moderate chronic whte matter ischemic changes. Mild moderate volume loss. Dictator: Víctor Smallwood DO 06/21/17 17:57 Patient continues to have dizziness despite medications. CT head negative. Discussed case with Dr. Zuñiga who agrees to place on observation to Med/Surg floor. She requested ENT consult which was placed. - Lab Interpretations Lab Results: 06/21/17 15:30 06/21/17 15:30 Lab Results 06/21/17 15:30: Sodium 139, Potassium 4.3, Chloride 102, Carbon Dioxide 30, Anion Gap 11, BUN 26 H, Creatinine 0.8, Est GFR ( Amer) > 60, Est GFR ( Non-Af Amer) > 60, Random Glucose 113 H, Calcium 9.7, Total Bilirubin 0.5, AST 29, ALT 25, Alkaline Phosphatase 180 H, Total Protein 7.4, Albumin 4.1, Globulin 3.2, Albumin/Globulin Ratio 1.3 06/21/17 15:30: PT 10.9, INR 1.00, APTT 29.3 06/21/17 15:30: WBC 10.6, RBC 4.57, Hgb 13.8, Hct 41.9, MCV 91.7, MCH 30.2, MCHC 32.9, RDW 13.3, Plt Count 282, MPV 9.7, Gran % 75.5 H, Lymph % (Auto) 17.4 L, [place] % (Auto) 5.8, Eos % (Auto) 1.0 L, Baso % (Auto) 0.3, Gran # 8.01 H, Lymph # 1.9, [place] # 0.6, Eos # 0.1, Baso # 0.03 I have reviewed the lab results: Yes - RAD Interpretation Radiology Orders: 06/21/17 15:00 HEAD W/O CONTRAST [CT] Stat Transferrer: Radiologist - Medication Orders Current Medication Orders: Discontinued Medications Acetaminophen (Tylenol 325mg Tab) 650 mg PO STAT STA Stop: 06/21/17 15:34 Last Admin: 06/21/17 17:37 Dose: Not Given Non-Admin Reason: Patient Refused Diazepam (Valium) 5 mg PO ONCE ONE PRN Reason: Protocol Stop: 06/21/17 17:44 Sodium Chloride (Sodium Chloride 0.9%) 500 mls @ 999 mls/hr IV .Q31M STA Stop: 06/21/17 17:16 Last Admin: 06/21/17 17:37 Dose: 999 mls/hr eMAR Start Stop Document 06/21/17 17:37 MR (Rec: 06/21/17 17:37 MR [id number]) Intravenous Solution Start Date 06/21/17 Start Time 17:37 End Date 06/21/17 End time 18:07 Total Infusion Time 30 Metoclopramide HCl (Reglan) 10 mg IVP STAT STA Stop: 06/21/17 15:00 Last Admin: 06/21/17 15:30 Dose: 10 mg IVP Administration Document 06/21/17 15:30 MR (Rec: 06/21/17 15:32 MR [id number]) Charges for Administration # of IVP Administrations 1 NIHSS Scale ([place]) Time Performed: 14:44 - How Severe is the [place] Baseline Level of Consciousness: 0=Alert LOC to Questions: 0=Both comments correct LOC to commands: 0=Obeys both correctly Best Gaze: 0=Normal Visual: 0=No visual loss Facial: 0=Normal Motor Arm - Left: 0=No drift Motor Arm - Right: 0=No drift Motor Leg - Left: 0=No drift Motor Leg - Right: 0=No drift Limb Ataxia: 0=Absent Sensory: 0=Normal Best Language: 0=No aphasia Dysarthia: 0=Normal articulation Extinction & Inattention (Neglect): 0=Normal, no object Score: 0 Risk Level: No Stroke Risk Disposition/Present on Arrival - Present on Arrival Any Indicators Present on Arrival: No History of DVT/PE: No History of Uncontrolled Diabetes: No Urinary Catheter: No History of Decub. Ulcer: No History Surgical Site Infection Following: None - Disposition Have Diagnosis and Disposition been Completed?: Yes Diagnosis: Dizziness Disposition: HOSPITALIZED Disposition Time: 17:57 Patient Plan: Observation Patient Problems: Current Active Problems Problem Status Onset Dizziness Acute Condition: FAIR Referrals: Grisel Nielsen DO [Primary Care Provider] - Follow up with primary Forms: [employer] ([place])
[2017-06-21 15:45] LABS: BASO # 0.03 K/mm3 (0.0-2.0); BASO % 0.3 % (0.0-3.0); EOS # 0.1 (0.0-0.7); GRAN # 8.01 (1.4-6.5); GRAN % 75.5 % (50.0-68.0); HEMATOCRIT 41.9 % (36.0-48.0); LYMPH # 1.9 (1.2-3.4); LYMPH % 17.4 % (22.0-35.0); MEAN CELL VOLUME 91.7 fl (80.0-105.0); MEAN CORPUSCULAR HEMOGLOBIN 30.2 pg (25.0-35.0); MEAN CORPUSCULAR HGB CONC 32.9 g/dl (31.0-37.0); MEAN PLATELET VOLUME 9.7 fl (7.0-11.0); MONO # 0.6 (0.1-0.6); MONO % 5.8 % (1.0-6.0); RED CELL DISTRIBUTION WIDTH 13.3 % (11.5-14.5); WHITE BLOOD COUNT 10.6 10^3/ul (4.5-11.0)
[2017-06-21 15:51] LABS: ALB/GLOB RATIO 1.3 (1.1-1.8); ALKALINE PHOSPHATASE 180 U/L (38-126); ALT/SGPT 25 U/L (7-56); AST/SGOT 29 U/L (14-36); BILIRUBIN,TOTAL 0.5 mg/dL (0.2-1.3); BLOOD UREA NITROGEN 26 mg/dL (7-21); CALCIUM 9.7 mg/dL (8.4-10.5); CARBON DIOXIDE 30 mmol/L (21-33); CHLORIDE 102 mmol/L (98-107); GFR AFRICAN-AMERICAN > 60; GLUCOSE,RANDOM 113 mg/dL (70-110); POTASSIUM 4.3 mmol/L (3.6-5.0); SODIUM 139 mmol/L (132-148); TOTAL PROTEIN 7.4 g/dL (5.8-8.3)
[2017-06-21 15:58] LABS: PARTIAL THROMBOPLASTIN TIME 29.3 Seconds (25.1-36.5)
[2017-06-21] MEDS ORDERED: Sodium Chloride 0.9% 500 ML IV STA (16:46)
--- NOTE | 2017-06-21 17:18 | CT ---
PROCEDURE: CT HEAD WITHOUT CONTRAST. HISTORY: dizziness COMPARISON: Comparison made with CT scan brain dated 06/15/2017. TECHNIQUE: Axial computed tomography images were obtained through the head/brain without intravenous contrast. Radiation dose: Total exam DLP = 678.13 MGy-cm. This CT exam was performed using one or more of the following dose reduction techniques: Automated exposure control, adjustment of the mA and/or kV according to patient size, and/or use of iterative reconstruction technique. FINDINGS: HEMORRHAGE: No intracranial hemorrhage. BRAIN: Mild -moderate diffuse/ confluent chronic white matter ischemic changes seen extending into the deep and subcortical white matter both cerebral hemispheres. Re- demonstrated is a elliptical shaped small lucency left inferolateral basal ganglia likely representing dilated perivascular space unchanged Mild moderate generalized volume loss. VENTRICLES: No obstructive hydrocephalus. CALVARIUM: No acute calvarial fractures. PARANASAL SINUSES: Re- demonstrated is mild mucosal thickening within the maxillary sphenoid and ethmoid air cells. MASTOID AIR CELLS: Unremarkable as visualized. No inflammatory changes. OTHER FINDINGS: Changes of bilateral cataract surgery. IMPRESSION: No acute intracranial hemorrhage. Mild to moderate chronic white matter ischemic changes. Mild moderate volume loss.
--- NOTE | 2017-06-21 20:41 | CARD ---
APPROVED REPORT EKG Measurement Heart [id number] VT 148P-5 [id number] <Conclusion> Normal sinus rhythm Normal ECG
[2017-06-21] MEDS ORDERED: Sodium Chloride 0.9% 1,000 ML IV ONE (22:41)
--- NOTE | 2017-06-21 22:52 | CP.PCM.HP ---
History of Present Illness - History of Present Illness History of Present Illness: Pt. recently discharged, she was admitted with same complaints of diziness. CT head was negative during last admission and today. She was evaluated by neuro on last admission. Complaining of diziness . No chest pain. Present on Admission - Present on Admission Any Indicators Present on Admission: No Review of Systems - Constitutional Constitutional: As Per HPI - EENT Eyes: As Per HPI - Cardiovascular Cardiovascular: absent: As Per HPI, Acrocyanosis, Chest Pain, Chest Pain at Rest , Chest Pain with Activity, Claudication, Diaphoresis, Dyspnea, Dyspnea on Exertion, Edema, Irregular Heart Rhythm, Pain Radiating to Arm/Neck/Jaw, Leg Edema, Leg Ulcers, Lightheadedness, Orthopnea, Palpitations, Paroxysmal Nocturnal Dyspnea, Pedal Edema, Radiating Pain, Rapid Heart Rate, Slow Heart Rate, Syncope, Other - Gastrointestinal Gastrointestinal: absent: As Per HPI, Abdominal Pain, Belching, Bloating, Change in Bowel Habits, Change in Stool Character, Coffee Ground Emesis, Constipation, Cramping, Diarrhea, Dyspepsia, Dysphagia, Early Satiety, Excessive Flatus, Fecal Incontinence, Heartburn, Hematemesis, Hematochezia, Loose Stools, Melena, Nausea, Odynophagia, Temesmus, Vomiting, Other - Genitourinary Genitourinary: absent: As Per HPI, Change in Urinary Stream, Difficulty Urinating, Dysuria, Flank Pain, Hematuria, Pyuria, Nocturia, Urinary Incontinence, Urinary Frequency, Urinary Hesitance, Urinary Urgency, Voiding Freq/Small Amts, Freq UTI, Hx Renal/Bladder Calculi, Hx /Renal Surgery, Bladder Distension, Other - Reproductive: Female Reproductive:Female: absent: As Per HPI, Amenorrhea, Amenorrhea/ Control, Currently Menstual, Cycle <21 Days, Cycle >35 Days, Cycle Variable, Menses 1-7 Days, Menses >/= 8 Days, Menses Variable, Cycle > 4 Weeks Between, No Menses for 6 Months, Heavy Menses, Light Menses, Normal Menses, Spotting Between Cycles , S/P Hysterectomy, Menopausal, Post Menopausal, Premenarche, Abnormal Vaginal Bleeding, Dysmenorrhea, Dyspareunia, Genital Lesions, Genital Pruritis, Pelvic Pain, Prolapse Symptoms, Sexual Dysfunction, Vaginal Discharge, Vaginal Dryness , Vaginal Odor, Vaginal Pruritis, Other - Musculoskeletal Musculoskeletal: As Per HPI - Integumentary Integumentary: absent: As Per HPI, Acne, Alopecia, Bleeding Lesions, Change in Hair, Change in Nails, Change in Pigmentation, Changing Lesions, Dry Skin, Erythema, Furuncle, Hirsutism, Lesions, New Lesions, Non-Healing Lesions, Photosensitivity, Pruritus, Rash, Skin Pain, Skin Ulcer, Sores, Striae, Swelling , Unusual Bruising, Wounds, Jaundice, Other - Neurological Neurological: As Per HPI - Endocrine Endocrine: absent: As Per HPI, Change in Body Appearance, Change in Libido, Cold Intolorance, Deepening of Voice, Excessive Sweating, Fatigue, Flushing, Heat Intolorance, Increase in Ring/Shoe/Hat Size, Palpitations, Polydipsia, Polyphagia, Polyuria, Other - Hematologic/Lymphatic Hematologic: absent: As Per HPI, Easy Bleeding, Easy Bruising, Lymphadenopathy, Other Past Patient History - Infectious Disease Hx of Infectious Diseases: None - Tetanus Immunizations Tetanus Immunization: Up to Date - Past Social History Smoking Status: Never Smoked - CARDIAC Hx Cardiac Disorders: Yes Hx Hypertension: Yes - PULMONARY Hx Respiratory Disorders: Yes Hx Asthma: Yes Hx Bronchitis: Yes - NEUROLOGICAL Hx Neurological Disorder: Yes Hx Dizziness: Yes Hx Migraine: Yes - HEENT Hx HEENT Problems: Yes Hx Cataracts: Yes (Cataracts extraction) Other/Comment: wear glasses - RENAL Hx Chronic Kidney Disease: No - ENDOCRINE/METABOLIC Hx Endocrine Disorders: No - HEMATOLOGICAL/ONCOLOGICAL Hx Blood Disorders: No - INTEGUMENTARY Hx Dermatological Problems: No - MUSCULOSKELETAL/RHEUMATOLOGICAL Hx Musculoskeletal Disorders: Yes Hx Arthritis: Yes Hx Back Pain: Yes Hx Falls: No Hx Herniated Disk: Yes - GASTROINTESTINAL Hx Gastrointestinal Disorders: Yes Hx Gastroesophageal Reflux: Yes - GENITOURINARY/GYNECOLOGICAL Hx Genitourinary Disorders: No - PSYCHIATRIC Hx Psychophysiologic Disorder: No Hx Substance Use: No - SURGICAL HISTORY Other/Comment: Cataract extraction - ANESTHESIA Hx Anesthesia: No Hx Anesthesia Reactions: No Hx Malignant Hyperthermia: No Meds Allergies/Adverse Reactions: Allergies Allergy/AdvReac Type Severity Reaction Status Date / Time No Known Allergies Allergy Verified 06/21/17 14:25 Physical Exam - Constitutional Appears: Non-toxic - Head Exam Head Exam: ATRAUMATIC, NORMAL INSPECTION, NORMOCEPHALIC - Eye Exam Eye Exam: Normal appearance Pupil Exam: NORMAL ACCOMODATION - ENT Exam ENT Exam: Mucous Membranes Moist - Neck Exam Neck exam: Positive for: Normal Inspection - Respiratory Exam Respiratory Exam: Clear to Auscultation Bilateral, NORMAL BREATHING PATTERN - Cardiovascular Exam Cardiovascular Exam: REGULAR RHYTHM, +S1, +S2 - GI/Abdominal Exam GI & Abdominal Exam: Normal Bowel Sounds, Soft - Back Exam Back exam: NORMAL INSPECTION - Skin Skin Exam: Normal Color, Warm Results - Vital Signs Recent Vital Signs: Last Vital Signs Temp 98.3 F 06/21/17 21:36 Pulse 76 06/21/17 21:36 Resp 18 06/21/17 21:36 BP 131/51 L 06/21/17 21:36 Pulse Ox 96 06/21/17 20:46 - Labs Result Diagrams: 06/21/17 15:30 06/21/17 15:30 Assessment & Plan - Assessment and Plan (Free Text) Assessment: 1. Diziness 2. hypertension Plan : Admit hospital. IVF NS at 80 cc/hr. meclizine 10 mg tid. ENT consult for dizziness renal : normal. heme : blood counts normal. neuro : CT head unremarkable. HTN ; continue norvasc, HCZ. - Date & Time Date: 06/21/17 Time: 18:00
--- NOTE | 2017-06-22 13:19 | CP.PCM.PN ---
<Rachel Langston - Last Filed: 06/22/17 13:17> Subjective - Date & Time of Evaluation Date of Evaluation: 06/22/17 Time of Evaluation: 08:00 - Subjective Subjective: PGY-[address] Pink Patient seen and examined at bedside. No acute distress. Patient states that she continues to get dizzy when she stands ups. She denies chest pain, abd pain , sob, n&v. Objective - Vital Signs/Intake and Output Vital Signs (last 24 hours): Temp Pulse Resp BP Pulse Ox 97.9 F 68 20 115/72 99 06/22/17 06:00 06/22/17 06:00 06/22/17 06:00 06/22/17 09:46 06/22/17 06:00 Intake and Output: 06/22/17 06/22/17 06:59 18:59 Intake Total 120 240 Balance 120 240 - Medications Medications: Current Medications Amlodipine Besylate (Norvasc) 10 mg PO DAILY [facility] Last Admin: 06/22/17 09:45 Dose: 10 mg Hydrochlorothiazide (Microzide) 12.5 mg PO DAILY [facility] Last Admin: 06/22/17 09:45 Dose: 12.5 mg Lisinopril (Zestril) 20 mg PO DAILY [facility] Last Admin: 06/22/17 09:46 Dose: 20 mg Meclizine HCl (Antivert) 12.5 mg PO TID PRN PRN Reason: Dizziness Pneumococcal Polyvalent Vaccine (Pneumovax 23 Vaccine) 0.5 ml IM .ONCE ONE Stop: 06/23/17 10:01 - Labs Labs: PT 10.9 SECONDS (9.4-12.5) 06/21/17 15:30 INR 1.00 (0.93-1.08) 06/21/17 15:30 APTT 29.3 Seconds (25.1-36.5) 06/21/17 15:30 - Constitutional Appears: No Acute Distress - Head Exam Head Exam: ATRAUMATIC, NORMAL INSPECTION, NORMOCEPHALIC - Eye Exam Eye Exam: EOMI, Normal appearance - ENT Exam ENT Exam: Mucous Membranes Moist - Respiratory Exam Respiratory Exam: Clear to Ausculation Bilateral, NORMAL BREATHING PATTERN. absent: Rales, Rhonchi, Wheezes, Respiratory Distress, Stridor - Cardiovascular Exam Cardiovascular Exam: REGULAR RHYTHM, +S1, +S2. absent: Tachycardia, Murmur - GI/Abdominal Exam GI & Abdominal Exam: Soft, Normal Bowel Sounds. absent: Distended, Firm, Guarding, Tenderness - Neurological Exam Neurological Exam: Alert, Awake, Oriented x3 - Skin Skin Exam: Dry, Intact, Normal Color, Warm Assessment and Plan - Assessment and Plan (Free Text) Assessment: 87 yo female with PMH of asthma, cataract, HTN, arthritis presented with dizziness. Plan: 1. dizziness - head CT showed no acute intracranial hemorrhage, Mild to moderate chronic white matter ischemic changes, Mild moderate volume loss. - patient recently hospitalized for same complaint, evaluated by neurology at that time. - IVF NS at 80cc/hr - meclizine prn - PT - ENT consulted 2. HTN - controlled - continue home medications HCTZ, lisinopril, norvasc <Tyler Pink - Last Filed: 06/22/17 20:13> Objective - Vital Signs/Intake and Output Vital Signs (last 24 hours): Temp Pulse Resp BP Pulse Ox 98.4 F 71 18 140/62 95 06/22/17 16:00 06/22/17 16:00 06/22/17 16:00 06/22/17 16:00 06/22/17 16:00 Intake and Output: 06/22/17 06/23/17 18:59 06:59 Intake Total 840 Balance 840 - Medications Medications: Current Medications Amlodipine Besylate (Norvasc) 10 mg PO DAILY [facility] Last Admin: 06/22/17 09:45 Dose: 10 mg Hydrochlorothiazide (Microzide) 12.5 mg PO DAILY [facility] Last Admin: 06/22/17 09:45 Dose: 12.5 mg Lisinopril (Zestril) 20 mg PO DAILY [facility] Last Admin: 06/22/17 09:46 Dose: 20 mg Meclizine HCl (Antivert) 12.5 mg PO TID PRN PRN Reason: Dizziness Pneumococcal Polyvalent Vaccine (Pneumovax 23 Vaccine) 0.5 ml IM .ONCE ONE Stop: 06/23/17 10:01 - Labs Labs: PT 10.9 SECONDS (9.4-12.5) 06/21/17 15:30 INR 1.00 (0.93-1.08) 06/21/17 15:30 APTT 29.3 Seconds (25.1-36.5) 06/21/17 15:30 Assessment and Plan - Assessment and Plan (Free Text) Plan: Pt is seen and examined. Note of medical territory manager reviewed and I am in agree with it. Reviewed Labs and medications. Reviewed notes. Dizziness resolved.
[2017-06-22 17:17] VITALS: TEMP 98.4
[2017-06-23 08:02] VITALS: BP 146/64; PULSE 68; RESP 20; O2SAT 98
[2017-06-23] MEDS ORDERED: Pneumococcal 23-Valent Vaccine IM ONE (10:00)
[2017-06-23] MEDS ORDERED: Influenza Vaccine 60 mcg/0.5 mL SYR (4YR UP) IM ONE ×2 (10:00→13:45)
--- NOTE | 2017-06-24 00:32 | DS ---
This is an 87-year-old female who had come into the hospital with dizziness. The patient's dizziness had improved. She was supposed to be discharged yesterday, but started having diarrhea. Diarrhea has improved. She is going to be discharged home to follow up as an outpatient. PHYSICAL EXAMINATION: VITAL SIGNS: Temperature is 98.4, pulse of 68, blood pressure 146/64, respirations 20, and O2 saturations 98%. GENERAL: The patient is lying in bed, flat, and comfortable. HEENT: No oral lesion. Anicteric sclerae. Moist mucosa. NECK: No JVD, adenopathy, or thyromegaly. CARDIOVASCULAR: S1 and S2, regular. No murmurs, rubs, or gallops. LUNGS: Clear to auscultation bilaterally. No wheeze, rales, or rhonchi. ABDOMEN: Bowel sounds are positive, soft, nontender and nondistended. EXTREMITIES: No cyanosis, clubbing or edema. ASSESSMENT: 1. Dizziness, resolved. 2. Hypertension. PLAN: The patient was given IV fluids. Going to continue her home medications. Follow up with primary care doctor, Dr. Nielsen. CONDITION: Stable. ACTIVITIES: Increase as tolerated. Tyler Pink MD
== END 2017-06-23 16:11 | disposition home or self-care (01) ==
LOC: ED 14:02 → ERH 17:56 → 3RNO 20:55
PROVIDERS: ADMIT Internal Medicine Medical Oncology; ATTEND Internal Medicine Medical Oncology
DX: R42 Dizziness and giddiness (principal); I10 Essential (primary) hypertension; J45.909 Unspecified asthma, uncomplicated; K21.9 Gastro-esophageal reflux disease without esophagitis; Z98.49 Cataract extraction status, unspecified eye; M19.90 Unspecified osteoarthritis, unspecified site; G43.909 Migraine, unspecified, not intractable, without status migrainosus
CPT/HCPCS: 70450; 80053; 82948; 85025; 85610; 85730; 87324; 90674; 93005; 96374; 97116; 97162; 99285; G0008; G0328; G0378; G8978; G8979; G8980; J2765; J7040